=== PATIENT | female | born 1970 ===

== ENCOUNTER 2016-11-12 17:27 | Emergency (ER) | payer SELFPAY ==
[2016-11-12 17:31] VITALS: BMI 32.1
[2016-11-12 17:32] VITALS: RESP 18; TEMP 98.8
[2016-11-12] MEDS ORDERED: Sodium Chloride 0.9% 1,000 ML IV ONE (18:10)
--- NOTE | 2016-11-12 18:10 | C.PDOC ---
History Of Present Illness 46 year old patient presents to the emergency department complaining of cramping left lower abdominal pain for the past 2 months. Patient was prescribed Augmentin by Dr. Connolly without improvement. Patient reports she occasionally took Ibuprofen without improvement. Patient denies fever, nausea, vomiting, diarrhea, back pain or shortness of breath. Time Seen by Provider: 11/12/16 18:05 Chief Complaint (Nursing): Back Pain History Per: Patient History/Exam Limitations: no limitations Onset/Duration Of Symptoms: Other (2 months) Current Symptoms Are (Timing): Still Present Quality Of Discomfort: Cramping, "Pain" Severity: Mild Pain Scale Rating Of: 3 Associated Symptoms: None Exacerbating Factor(s): Nothing Recent travel outside of the [place]: No Past Medical History Reviewed: Historical Data, Nursing Documentation, Vital Signs Vital Signs: Last Vital Signs Temp 98.8 F 11/12/16 17:31 Pulse 72 11/12/16 19:20 Resp 18 11/12/16 19:20 BP 127/81 11/12/16 19:20 Pulse Ox 100 11/12/16 19:47 Family History: States: Unknown Family Hx - Social History Hx Alcohol Use: No Hx Substance Use: No - Immunization History Hx Tetanus Toxoid Vaccination: No Hx Influenza Vaccination: No Hx Pneumococcal Vaccination: No Review Of Systems Except As Marked, All Systems Reviewed And Found Negative. Constitutional: Negative for: Fever Respiratory: Negative for: Shortness of Breath Gastrointestinal: Positive for: Abdominal Pain. Negative for: Nausea, Vomiting , Diarrhea Musculoskeletal: Negative for: Back Pain Physical Exam - Physical Exam Appears: Non-toxic, No Acute Distress Skin: Warm, Dry Head: Atraumatic, Normacephalic Neck: Normal ROM, Supple Chest: Symmetrical Cardiovascular: Rhythm Regular Respiratory: Normal Breath Sounds, No Rales, No Rhonchi, No Wheezing Gastrointestinal/Abdominal: Soft, Tenderness (mild LLQ), No Guarding, No Rebound Back: Normal Inspection, No CVA Tenderness Extremity: Normal ROM Neurological/Psych: Oriented x3, Normal Speech, Normal Cognition Gait: Steady ED Course And Treatment - Laboratory Results Result Diagrams: 11/12/16 18:19 11/12/16 18:19 Lab Interpretation: Normal (ua neg.) Urine POC: Negative O2 Sat by Pulse Oximetry: 100 (room air) Pulse Ox Interpretation: Normal - Radiology CXR: Interpreted by Me CXR Interpretation: Yes: No Acute Disease - Other Rad abd x 2 X-Ray: Interpreted by Me (+FOS) Progress Note: Plan: Abdomen/Pelvis CT, Labs, IV fluids, Toradol Reevaluation Time: 21:46 Reassessment Condition: Improved Medical Decision Making Medical Decision Making: chronic constipation Disposition Doctor Will See Patient In The: Office Counseled Patient/Family Regarding: Studies Performed, Diagnosis - Disposition Disposition: HOME/ ROUTINE Disposition Time: 21:46 Condition: GOOD - Clinical Impression Clinical Impression: Abdominal pain - Scribe Statement The provider has reviewed the documentation as recorded by the Scribe Angelica Bhakta Provider Attestation: All medical record entries made by the Scribe were at my direction and personally dictated by me. I have reviewed the chart and agree that the record accurately reflects my personal performance of the history, physical exam, medical decision making, and the department course for this patient. I have also personally directed, reviewed, and agree with the discharge instructions and disposition.
[2016-11-12] MEDS ORDERED: Sodium Chloride 0.9% 1,000 ML ONE (18:16)
[2016-11-12 18:28] LABS: BASO % 0.8 % (0.0-2.0); EOS # 0.1 K/uL (0.0-0.7); EOS % 1.5 % (0.0-4.0); HEMATOCRIT 36.3 % (34.0-47.0); LYMPH # 2.5 K/uL (1.0-4.3); LYMPH % 44.2 % (20.0-40.0); MEAN CELL VOLUME 81.6 fL (81.0-99.0); MEAN CORPUSCULAR HEMOGLOBIN 26.8 pg (27.0-31.0); MEAN CORPUSCULAR HGB CONC 32.8 g/dL (33.0-37.0); MEAN PLATELET VOLUME 9.6 fL (7.2-11.7); MONO # 0.5 K/uL (0.0-0.8); MONO % 8.4 % (0.0-10.0); NRBC % 0.1 % (0.0-2.0); RED CELL DISTRIBUTION WIDTH 15.6 % (11.5-14.5); WHITE BLOOD COUNT 5.7 K/uL (4.8-10.8)
[2016-11-12 18:30] LABS: URINE BILIRUBIN NEGATIVE (NEGATIVE); URINE BLOOD NEGATIVE (NEGATIVE); URINE COLOR Yellow (YELLOW); URINE GLUCOSE (UA) NORMAL (Normal); URINE KETONE NEGATIVE (NEGATIVE); URINE LEUKOCYTE ESTERASE 1+ Leu/uL (Negative); URINE PROTEIN NEGATIVE (NEGATIVE); URINE UROBILINOGEN NORMAL mg/dL (0.2-1.0); WBC URINE 11 /hpf (0-5)
[2016-11-12 18:39] LABS: CHLORIDE 102 mmol/L (98-107); SODIUM 136 mmol/L (132-148)
[2016-11-12 18:41] LABS: GFR AFRICAN-AMERICAN > 60
[2016-11-12 18:42] LABS: ALB/GLOB RATIO 1.4 (1.0-2.1); ALKALINE PHOSPHATASE 65 U/L (38-126); ALT/SGPT 27 U/L (9-52); AST/SGOT 28 U/L (14-36); BILIRUBIN,TOTAL 0.4 mg/dL (0.2-1.3); BLOOD UREA NITROGEN 11 mg/dL (7-17); CARBON DIOXIDE 24 mmol/L (22-30); GLUCOSE,RANDOM 127 mg/dL (65-105); TOTAL PROTEIN 7.5 g/dL (6.3-8.3)
[2016-11-12] MEDS ORDERED: Iodixanol 320 MG/ML 100 ML BOTTLE IV ONE ×2 (21:07→21:15)
[2016-11-12 21:59] VITALS: BP 122/80; PULSE 66; O2SAT 99
--- NOTE | 2016-11-13 11:56 | CT ---
PROCEDURE: CT abdomen and pelvis dated 11/12/2016. HISTORY: LLQ x 4 wks, renal colic vs diverticulitis COMPARISON: No prior study available comparison. TECHNIQUE: Contiguous axial images of the abdomen and pelvis performed in standard fashion following intravenous injection of approximately 100 cc Visipaque 320 contrast material. Coronal and Sagittal reformats generated. Radiation dose: Total exam DLP = 649.04 mGy-cm. This CT exam was performed using one or more of the following dose reduction techniques: Automated exposure control, adjustment of the mA and/or kV according to patient size, and/or use of iterative reconstruction technique. FINDINGS: LOWER THORAX: Mild passive atelectasis both posterior lung bases. No infiltrate effusion or basilar pneumothorax. Tiny hiatal hernia. Heart size within range of normal. Small hiatal hernia. LIVER: Liver exhibits normal size measuring nearly 16 cm in CC dimension. No obvious hepatic mass collection or calcification. No significant intrahepatic biliary ductal dilatation. GALLBLADDER AND BILE DUCTS: Gallbladder is incompletely distended which may account slight thick-walled appearance. . This is likely due to nonfasting state however clinical correlation recommended. PANCREAS: Visualized portions the pancreas unremarkable without mass collection calcification or significant ductal dilatation. SPLEEN: Spleen exhibits normal size and attenuation pattern. Small accessory spleen/splenule located anterior and superior to the main body of the spleen is felt be present. ADRENALS: No adrenal lesions. KIDNEYS AND URETERS: Kidneys exhibit symmetric nephrograms. No evidence of nephrolithiasis or hydronephrosis. BLADDER: Urinary bladder is physiologically distended. No evidence of intraluminal urinary bladder calculi. REPRODUCTIVE: Status post tubal ligation. Uterus is somewhat heterogeneous. Rule out uterine fibroids. Pelvic ultrasound could be performed further evaluation if necessary. There appears to be a small corpus luteum cyst right ovary measuring approximately 17 mm in greatest dimension. APPENDIX: Normal-appearing appendix best seen on axial image number [id number]. No periappendiceal inflammatory changes. BOWEL: Evaluation of the bowel is somewhat limited due to the lack of oral contrast material. Stomach is distended with food debris liquid and air. Visualized small bowel exhibit normal contour and caliber. No evidence acute mechanical small bowel obstruction. Stool and air seen throughout colon. No evidence of colonic obstruction. No significant mural wall thickening so far as can be seen. PERITONEUM: Unremarkable. No fluid collection. No free air. Small fat containing umbilical hernia. LYMPH NODES: Unremarkable. No enlarged lymph nodes. VASCULATURE: Unremarkable. No aortic aneurysm. BONES: Minor multilevel degenerative spondylosis of the lower thoracic and lumbar spine. OTHER FINDINGS: None. IMPRESSION: Suspect small right ovarian cyst. Region each uterus; rule out uterine fibroids. Followup pelvic ultrasound could be performed be performed confirm. Status post tubal ligation. . Small fat containing umbilical hernia. Gallbladder is presumably contracted due to the nonfasting state
--- NOTE | 2016-11-13 14:04 | RAD ---
PROCEDURE: Radiographs s of the chest and abdomen (obstructive series) HISTORY: Left lower quadrant x 2 mo COMPARISON: No prior the TECHNIQUE: AP radiograph of the chest, with upright and supine radiographs of the abdomen. FINDINGS: Findings: Heart size within range of normal. Lung woods clear without focal consolidation or effusion. No apparent pneumothorax. No evidence of free fluid seen in the diaphragmatic domes. Moderate amount of stool seen throughout colon consistent with mild fecal retention/constipation. No evidence to suggest acute mechanical bowel obstruction. Tiny rounded radiopaque densities overlying the pelvis most likely represent sequela of prior tubal ligation however clinical correlation recommended Impression: No acute cardiopulmonary disease. Findings consistent with mild constipation. Findings also suggest prior tubal ligation however clinical correlation with surgical history recommended.
== END 2016-11-12 21:59 | disposition home or self-care (01) ==
LOC: C.ER 17:27
DX: R10.32 Left lower quadrant pain (principal)
CPT/HCPCS: 74022; 74177; 80053; 81001; 83690; 84703; 85025; 96361; 96374; 96375; 99285; J1885; J2270; J7040; Q9967